=== PATIENT | female | born 1965 | race Caucasian/White ===

== ENCOUNTER 2023-01-24 16:20 | Inpatient (IN) ==
--- NOTE | 2023-01-24 16:25 | Emergency Department Note ---
Impression & Plan Hypoxia, SOB (shortness of breath), Anemia, COPD exacerbation ED Provider Note NAME: MAGGIE XIAO AGE: 57 SEX: F : 1965 ARRIVES VIA: Ambulance INFORMANT: [Patient][ems] ED PROVIDER(S): [Fransisco Fink MD] CHIEF COMPLAINT: Short of breath, low oxygen level. HISTORY OF PRESENT ILLNESS: Seen at ED on 01/06/23 for chest pain. Signed out AMA prior to CT scan results or trending trops. Seen at ED on 01/07/23 fall, resulting in L shoulder and back pain. Shoulder XR negative. Head CT unremarkable. Discharged to home. Seen at ED on 01/08/23 for chronic pain and chest pain. [place] related to anxiety. tx w/ Oxycodone. Discharged to home. Seen at ED on 01/20/23 for shortness of breath. EKG without acute changes. Discharged to home w/ no new med changes. Seen at ED on 01/21/23 for L knee pain. dx w/ L knee sprain. Discharged to home w/ no new med changes. The patient was seen today at her doctor's office and had an O2 saturation on her typical 3 L nasal cannula O2 of 65%. She was feeling short of breath. She was sent by ambulance. In route, she was placed on a nonrebreather mask and give a DuoNeb. She feels better after the DuoNeb treatment. The patient carries a history of COPD. She did notice shortness of breath walking into her doctor's office today. She has noticed a cough today. The patient denies fever, no chest pain. No stuffy nose or sore throat. Her legs are somewhat swollen but this is baseline. The patient has been at the [facility] several times this week already. Please see the above documentation. PMHx/PSHx: See Below SOCIAL HISTORY: See Below. PHYSICAL EXAM: GENERAL: Patient is in no acute distress. On facemask O2. HEENT: No acute trauma, normocephalic atraumatic, mucous membranes moist, no nasal congestion. NECK: No stridor, no adenopathy, no meningismus, trachea is midline. LUNGS: Markedly diminished breath sounds with wheezes bilaterally and crackles at both bases. No obvious respiratory distress. HEART: Mildly tachycardic, regular rhythm, no obvious murmur. Heart tones are distant ABDOMEN: Soft, nontender, bowel sounds positive, no peritonitis. Obese. EXTREMITIES: No cyanosis, mild bilateral pedal edema, full range of motion of all the joints without pain or difficulty, no signs for acute trauma. NEUROLOGIC: Oriented x 3, no acute motor or sensory deficits, no focal weakness. SKIN: No rash, no jaundice, no diaphoresis. DIFFERENTIAL DIAGNOSIS: Pneumonia, bronchitis, PE, anemia, IA, electrolyte imbalance, COPD exacerbation, among others. EMERGENCY DEPARTMENT COURSE/PROCEDURES: Prior/Outside records reviewed: Recent family doctor's office note, recent [facility] visits. ECG per my interpretation: Indication was shortness of breath. The ECG shows a sinus tachycardia with a rate of 106. There is some nonspecific ST change. There is no ST elevation, no PVCs. The QTc is 446. Continuous Cardiac Monitoring per my interpretation: An order was placed for continuous cardiac monitoring. The monitor shows a rate of 102 with sinus tachycardia. Critical Care Note: I have personally spent 48 minutes of critical care time in the direct management of this patient. This includes bedside care, interpretation of diagnostic studies, and testing, discussion with consultants, patient, and family members, and other required patient management activities. This 48 minutes is in excess of all separately billable procedures. MEDICAL DECISION MAKING: There is no leukocytosis. The patient is anemic. There are no old values to use for comparison. This value can be followed here in the hospital. There was a normal platelet count. No coagulopathy. No renal failure or significant electrolyte abnormality. No concerning liver enzyme elevation. BNP was not elevated making CHF and fluid overload unlikely. Lactic acid level was not elevated making sepsis less likely. ECG showed a sinus tachycardia, no obvious acute ischemia. Cardiac enzyme testing x1 is slightly elevated, this elevation could be from cardiac injury or potentially just mismatch from her hypoxia. Urinalysis did not show infection. Respiratory bio fire was completely negative. Chest film per my review showed a potential left base infiltrate. No pneumothorax or CHF. Chest CT did not show any pneumonia, some atelectasis was seen. There was no PE. Changes for COPD were found. On exam, the patient had wheezing and diminished breath sounds with some bibasilar crackles. No obvious respiratory distress. Patient was given a DuoNeb, a second DuoNeb was given. She received IV Solu- Medrol, she was given IV Levaquin as antibiotic coverage. Patient does seem to be improved. I do think she requires a hospital stay. She appears to have an exacerbation of COPD as the cause for her hypoxia and shortness of breath. I did speak with the patient at length, I spoke with case management. The on-call hospitalist was consulted. DISPOSITION: The patient's findings and presentation warrant a hospital stay. Past Med/Surg History Medical History Anxiety Bipolar disorder COPD (chronic obstructive pulmonary disease) HTN (hypertension) Surgical History H/O: S/P cataract surgery Status post appendectomy Status post cholecystectomy Status post hernia repair Status post tooth extraction Family History Aunt Breast cancer Father Myocardial infarction Denies family history of Ovarian cancer Prostate cancer Colorectal cancer Social History Smoking Status: Current every day smoker Tobacco Type: Cigarettes Age Started Using Tobacco: 17; packs per day: 1; Second Hand Exposure: Yes; Do You Dip or Chew Tobacco: No; Hx Alcohol Use: No Hx Substance Use: No Visual Impairment: No Limitations Hearing Ability: Hard of Hearing Beliefs That Will Affect Care: None marital status: / Current Living Situation: Family Current Living Situation Comment: lives with son current occupational status: disabled How many Children do You have: 3 Feels Safe at Home: Yes Diet: regular Diet Comment: regular caffeine: Yes during the past year weight has: remained stable Dental Care, Regularly: No Physical Activity Frequency: Does not Exercise Seatbelt Use: always Allergies Allergies Allergy/AdvReac Type Severity Reaction Status Date / Time ibuprofen Allergy Severe THROAT Verified 01/24/23 17:25 TIGHTENS, BREATHING DIFFICULTIES ketorolac [From Toradol] Allergy Severe THROAT Verified 01/24/23 17:25 TIGHTENS, BREATHING DIFFICULTIES tramadol [From Ultram] Allergy Severe THROAT Verified 01/24/23 17:25 TIGHTENS, BREATHING DIFFICULTIES cephalexin [From Keflex] AdvReac Intermediate Diarrhea Verified 01/24/23 17:25 Home Meds Home Medications Medication Instructions Recorded Confirmed albuterol sulfate 2.5 mg/0.5 mL 5 mg inhalation TID 01/24/23 01/24/23 solution for nebulization albuterol sulfate 90 mcg/actuation 2 inh inhalation Q4H PRN Shortness 01/24/23 01/24/23 breath activated powder inhaler Of Breath amlodipine 10 mg tablet (Norvasc) 10 mg PO QAM 01/24/23 01/24/23 aspirin 81 mg tablet,delayed 81 mg PO QAM 01/24/23 01/24/23 release atorvastatin 20 mg tablet (Lipitor) 20 mg PO HS 01/24/23 01/24/23 budesonide 0.5 mg/2 mL suspension 0.25 mg inhalation BID 01/24/23 01/24/23 for nebulization budesonide-formoterol HFA 160 2 puff inhalation BID 01/24/23 01/24/23 mcg-4.5 mcg/actuation aerosol inhaler (Symbicort) bumetanide 0.5 mg tablet 0.5 mg PO QAM 01/24/23 01/24/23 ndcjvvtaia-aeczslgyocnyc-ehvejsqc 1 tab PO Q6H PRN Headache 01/24/23 01/24/23 50 mg-325 mg-40 mg tablet carvedilol 6.25 mg tablet (Coreg) 6.25 mg PO BID 01/24/23 01/24/23 cholecalciferol (vitamin D3) 50 50 mcg PO QAM 01/24/23 01/24/23 mcg (2,000 unit) capsule diclofenac sodium 1 % topical gel 4 g topical QID PRN Pain 01/24/23 01/24/23 gabapentin 600 mg tablet 600 mg PO TID 01/24/23 01/24/23 hydrocodone 5 mg-acetaminophen 325 1 tab PO Q6H PRN Pain 01/24/23 01/24/23 mg tablet hydroxyzine HCl 50 mg tablet 100 mg PO DIRECTED PRN Anxiety 01/24/23 01/24/23 lisinopril 40 mg tablet 40 mg PO QAM 01/24/23 01/24/23 lurasidone 20 mg tablet (Latuda) 20 mg PO HS 01/24/23 01/24/23 ondansetron HCl 4 mg tablet 4 mg PO TID PRN NAUSEA/VOMITING 01/24/23 01/24/23 pantoprazole 40 mg tablet,delayed 40 mg PO BID 01/24/23 01/24/23 release (Protonix) prazosin 2 mg capsule 2 mg PO HS 01/24/23 01/24/23 venlafaxine 37.5 mg 37.5 mg PO QAM 01/24/23 01/24/23 capsule,extended release 24 hr (Effexor XR) venlafaxine 75 mg capsule,extended 75 mg PO QAM 01/24/23 01/24/23 release 24 hr (Effexor XR) Results & Data (ED) Vital Signs Vital Signs - 24 hr 01/24/23 16:25 01/24/23 16:25 01/24/23 16:25 Temperature 37.5 C Temperature Source Oral Pulse Rate 108 H 108 H Pulse Rate from SpO2 Sensor Respiratory Rate 24 22 Blood Pressure 139/76 Blood Pressure Mean 97 Blood Pressure Position Sitting Pulse Oximetry 100 100 Oxygen Delivery Method Non-rebreather Non-rebreather Non-rebreather Oxygen Flow Rate 15 15 15 Sepsis Recent Fever Within 48 Hours No Sepsis New/Unexplained Change in Mental Status No Sepsis Action Taken by Nursing Physician Notified Oxygen Flow Rate - Titration Pulse Oximetry Post Tiitration 01/24/23 16:45 01/24/23 16:47 01/24/23 18:29 Temperature Temperature Source Pulse Rate 104 H 105 H Pulse Rate from SpO2 Sensor 105 H Respiratory Rate 20 Blood Pressure 160/88 H Blood Pressure Mean 112 Blood Pressure Position Pulse Oximetry 100 94 Oxygen Delivery Method Nasal Cannula Non-rebreather Nasal Cannula Oxygen Flow Rate 15 6 Sepsis Recent Fever Within 48 Hours Sepsis New/Unexplained Change in Mental Status Sepsis Action Taken by Nursing Oxygen Flow Rate - Titration 5 Pulse Oximetry Post Tiitration 92 Home Medications Current Medication List: was personally reviewed by me Laboratory Data Attestation: I reviewed the patient's lab results. 01/24/23 16:30 01/24/23 16:30 Lab Results 01/24/23 01/24/23 01/24/23 Range/Units 16:30 16:30 16:30 WBC 10.04 (4.8-10.8) K/ul RBC 3.75 L (4.20-5.40) M/uL Hgb 10.1 L (12.0-16.0) g/dl Hct 34.0 L (37.0-47.0) % MCV 90.7 (80.0-100.0) fL MCH 26.9 (25.0-34.0) pg MCHC 29.7 L (32.0-36.0) g/dL RDW Std Deviation 55.1 H (36.4-46.3) fL RDW Coeff of Kaylan 16.9 H (11.5-14.5) % Plt Count 300 (130-400) K/uL MPV 9.8 (9.4-12.4) fL Immature Gran % (Auto) 1.0 % Neut % (Auto) 69.8 % Lymph % (Auto) 17.2 % Wilkinson % (Auto) 9.6 % Eos % (Auto) 1.8 % Baso % (Auto) 0.6 % Neut # (Auto) 7.01 H (1.40-6.50) K/uL Lymph # (Auto) 1.73 (1.2-3.4) K/uL Wilkinson # (Auto) 0.96 H (0.11-0.59) K/uL Eos # (Auto) 0.18 (0-0.50) K/uL Baso # (Auto) 0.06 (0-0.2) K/uL Immature Gran # (Auto) 0.10 (0.01-0.20) K/uL Absolute Nucleated RBC 0.03 (0-0.12) K/uL Nucleated RBC % (auto) 0.3 % PT (9.0-12.0) Seconds INR (0.9-1.1) APTT (21.0-31.0) Seconds PTT Ratio Sodium (136-145) mmol/L Potassium (3.5-5.1) mmol/L Chloride (98-107) mmol/L Carbon Dioxide (21-32) mmol/L Anion Gap (3-11) BUN (6-23) mg/dl Creatinine (0.6-1.2) mg/dl Est Cr Clr Drug Dosing ml/min Est GFR ( Amer) ml/min Est GFR (Non-Af Amer) ml/min BUN/Creatinine Ratio (10-20) Glucose (70-99(Fasting)) mg/dl Lactate 0.8 (0.4-2.0) mmol/L Calcium (8.6-10.3) mg/dl Magnesium (1.7-2.4) mg/dl Total Bilirubin (0.2-1.0) mg/dl AST (13-39) U/L ALT (7-52) U/L Alkaline Phosphatase (34-104) U/L Troponin I High Sens (0-14) pg/ml B-Natriuretic Peptide 100 (0-100) pg/ml Total Protein (6.0-8.3) gm/dl Albumin (3.4-5.0) gm/dl Globulin (2.5-4.0) gm/dl Albumin/Globulin Ratio (0.9-2) Urine Color Urine Appearance (Clear) Urine pH (4.5-7.5) Ur Specific Kent (1.000-1.030) Urine Protein (Negative) Urine Glucose (UA) (Negative) Urine Ketones (Negative) Urine Blood (Negative) Urine Nitrite (Negative) Urine Bilirubin (Negative) Urine Urobilinogen (Negative) Ur Leukocyte Esterase (Negative) Urine WBC (Auto) (0-5) /hpf Urine RBC (Auto) (0-4) /hpf U Hyaline Cast (Auto) (0-5) /lpf U Epithel Cells (Auto) (0-5) /lpf Urine Bacteria (Auto) (Negative) Adenovirus (PCR) (NotDetected) B. pertussis DNA (PCR) (NotDetected) B.parapertussis DNA PCR (NotDetected) C. pneumoniae DNA (PCR) (NotDetected) Coronavirus OC43 (PCR) (NotDetected) Coronavirus HKU1 (PCR) (NotDetected) Coronavirus 229E (PCR) (NotDetected) SARS-CoV-2 (PCR) (NotDetected) Coronavirus NL63 (PCR) (NotDetected) Human Metapneumovir PCR (NotDetected) Influenza Type A (PCR) (NotDetected) Influenza Type B (PCR) (NotDetected) M. pneumoniae (PCR) (NotDetected) Parainfluenza 1 (PCR) (NotDetected) Parainfluenza 2 (PCR) (NotDetected) Parainfluenza 3 (PCR) (NotDetected) Parainfluenza 4 (PCR) (NotDetected) RSV (PCR) (NotDetected) Entero/Rhino (PCR) (NotDetected) 01/24/23 01/24/23 01/24/23 Range/Units 16:30 16:30 17:08 WBC (4.8-10.8) K/ul RBC (4.20-5.40) M/uL Hgb (12.0-16.0) g/dl Hct (37.0-47.0) % MCV (80.0-100.0) fL MCH (25.0-34.0) pg MCHC (32.0-36.0) g/dL RDW Std Deviation (36.4-46.3) fL RDW Coeff of Kaylan (11.5-14.5) % Plt Count (130-400) K/uL MPV (9.4-12.4) fL Immature Gran % (Auto) % Neut % (Auto) % Lymph % (Auto) % Wilkinson % (Auto) % Eos % (Auto) % Baso % (Auto) % Neut # (Auto) (1.40-6.50) K/uL Lymph # (Auto) (1.2-3.4) K/uL Wilkinson # (Auto) (0.11-0.59) K/uL Eos # (Auto) (0-0.50) K/uL Baso # (Auto) (0-0.2) K/uL Immature Gran # (Auto) (0.01-0.20) K/uL Absolute Nucleated RBC (0-0.12) K/uL Nucleated RBC % (auto) % PT 10.9 (9.0-12.0) Seconds INR 1.0 (0.9-1.1) APTT 22.3 (21.0-31.0) Seconds PTT Ratio 0.8 Sodium 139 (136-145) mmol/L Potassium 3.9 (3.5-5.1) mmol/L Chloride 98 (98-107) mmol/L Carbon Dioxide 38 H (21-32) mmol/L Anion Gap 3 (3-11) BUN 6 (6-23) mg/dl Creatinine 0.45 L (0.6-1.2) mg/dl Est Cr Clr Drug Dosing 152.3 ml/min Est GFR ( Amer) 129.8 ml/min Est GFR (Non-Af Amer) 112.0 ml/min BUN/Creatinine Ratio 13.3 (10-20) Glucose 103 H (70-99(Fasting)) mg/dl Lactate (0.4-2.0) mmol/L Calcium 9.0 (8.6-10.3) mg/dl Magnesium 1.8 (1.7-2.4) mg/dl Total Bilirubin 0.2 (0.2-1.0) mg/dl AST 16 (13-39) U/L ALT 9 (7-52) U/L Alkaline Phosphatase 69 (34-104) U/L Troponin I High Sens 14.2 H (0-14) pg/ml B-Natriuretic Peptide (0-100) pg/ml Total Protein 6.8 (6.0-8.3) gm/dl Albumin 3.6 (3.4-5.0) gm/dl Globulin 3.2 (2.5-4.0) gm/dl Albumin/Globulin Ratio 1.1 (0.9-2) Urine Color Urine Appearance (Clear) Urine pH (4.5-7.5) Ur Specific Kent (1.000-1.030) Urine Protein (Negative) Urine Glucose (UA) (Negative) Urine Ketones (Negative) Urine Blood (Negative) Urine Nitrite (Negative) Urine Bilirubin (Negative) Urine Urobilinogen (Negative) Ur Leukocyte Esterase (Negative) Urine WBC (Auto) (0-5) /hpf Urine RBC (Auto) (0-4) /hpf U Hyaline Cast (Auto) (0-5) /lpf U Epithel Cells (Auto) (0-5) /lpf Urine Bacteria (Auto) (Negative) Adenovirus (PCR) Not Detected (NotDetected) B. pertussis DNA (PCR) Not Detected (NotDetected) B.parapertussis DNA PCR Not Detected (NotDetected) C. pneumoniae DNA (PCR) Not Detected (NotDetected) Coronavirus OC43 (PCR) Not Detected (NotDetected) Coronavirus HKU1 (PCR) Not Detected (NotDetected) Coronavirus 229E (PCR) Not Detected (NotDetected) SARS-CoV-2 (PCR) Not Detected (NotDetected) Coronavirus NL63 (PCR) Not Detected (NotDetected) Human Metapneumovir PCR Not Detected (NotDetected) Influenza Type A (PCR) Not Detected (NotDetected) Influenza Type B (PCR) Not Detected (NotDetected) M. pneumoniae (PCR) Not Detected (NotDetected) Parainfluenza 1 (PCR) Not Detected (NotDetected) Parainfluenza 2 (PCR) Not Detected (NotDetected) Parainfluenza 3 (PCR) Not Detected (NotDetected) Parainfluenza 4 (PCR) Not Detected (NotDetected) RSV (PCR) Not Detected (NotDetected) Entero/Rhino (PCR) Not Detected (NotDetected) 01/24/23 Range/Units 18:27 WBC (4.8-10.8) K/ul RBC (4.20-5.40) M/uL Hgb (12.0-16.0) g/dl Hct (37.0-47.0) % MCV (80.0-100.0) fL MCH (25.0-34.0) pg MCHC (32.0-36.0) g/dL RDW Std Deviation (36.4-46.3) fL RDW Coeff of Kaylan (11.5-14.5) % Plt Count (130-400) K/uL MPV (9.4-12.4) fL Immature Gran % (Auto) % Neut % (Auto) % Lymph % (Auto) % Wilkinson % (Auto) % Eos % (Auto) % Baso % (Auto) % Neut # (Auto) (1.40-6.50) K/uL Lymph # (Auto) (1.2-3.4) K/uL Wilkinson # (Auto) (0.11-0.59) K/uL Eos # (Auto) (0-0.50) K/uL Baso # (Auto) (0-0.2) K/uL Immature Gran # (Auto) (0.01-0.20) K/uL Absolute Nucleated RBC (0-0.12) K/uL Nucleated RBC % (auto) % PT (9.0-12.0) Seconds INR (0.9-1.1) APTT (21.0-31.0) Seconds PTT Ratio Sodium (136-145) mmol/L Potassium (3.5-5.1) mmol/L Chloride (98-107) mmol/L Carbon Dioxide (21-32) mmol/L Anion Gap (3-11) BUN (6-23) mg/dl Creatinine (0.6-1.2) mg/dl Est Cr Clr Drug Dosing ml/min Est GFR ( Amer) ml/min Est GFR (Non-Af Amer) ml/min BUN/Creatinine Ratio (10-20) Glucose (70-99(Fasting)) mg/dl Lactate (0.4-2.0) mmol/L Calcium (8.6-10.3) mg/dl Magnesium (1.7-2.4) mg/dl Total Bilirubin (0.2-1.0) mg/dl AST (13-39) U/L ALT (7-52) U/L Alkaline Phosphatase (34-104) U/L Troponin I High Sens (0-14) pg/ml B-Natriuretic Peptide (0-100) pg/ml Total Protein (6.0-8.3) gm/dl Albumin (3.4-5.0) gm/dl Globulin (2.5-4.0) gm/dl Albumin/Globulin Ratio (0.9-2) Urine Color Yellow Urine Appearance Clear (Clear) Urine pH 7.0 (4.5-7.5) Ur Specific Kent 1.023 (1.000-1.030) Urine Protein Negative (Negative) Urine Glucose (UA) Negative (Negative) Urine Ketones Negative (Negative) Urine Blood Negative (Negative) Urine Nitrite Negative (Negative) Urine Bilirubin Negative (Negative) Urine Urobilinogen Negative (Negative) Ur Leukocyte Esterase 1+ H (Negative) Urine WBC (Auto) 5-10 H (0-5) /hpf Urine RBC (Auto) 0-4 (0-4) /hpf U Hyaline Cast (Auto) 1-5 (0-5) /lpf U Epithel Cells (Auto) >30 H (0-5) /lpf Urine Bacteria (Auto) Negative (Negative) Adenovirus (PCR) (NotDetected) B. pertussis DNA (PCR) (NotDetected) B.parapertussis DNA PCR (NotDetected) C. pneumoniae DNA (PCR) (NotDetected) Coronavirus OC43 (PCR) (NotDetected) Coronavirus HKU1 (PCR) (NotDetected) Coronavirus 229E (PCR) (NotDetected) SARS-CoV-2 (PCR) (NotDetected) Coronavirus NL63 (PCR) (NotDetected) Human Metapneumovir PCR (NotDetected) Influenza Type A (PCR) (NotDetected) Influenza Type B (PCR) (NotDetected) M. pneumoniae (PCR) (NotDetected) Parainfluenza 1 (PCR) (NotDetected) Parainfluenza 2 (PCR) (NotDetected) Parainfluenza 3 (PCR) (NotDetected) Parainfluenza 4 (PCR) (NotDetected) RSV (PCR) (NotDetected) Entero/Rhino (PCR) (NotDetected) Administered Medications Discontinued Medications Albuterol (Albut/Ipratrop 3mg/0.5mg Neb 3 Ml Vial) 3 ml NEB NOW STA; Protocol Stop: 01/24/23 16:36 Last Admin: 01/24/23 17:04 Dose: 3 ml Documented By: QGV Albuterol (Albut/Ipratrop 3mg/0.5mg Neb 3 Ml Vial) 3 ml NEB NOW STA; Protocol Stop: 01/24/23 18:58 Last Admin: 01/24/23 19:11 Dose: 3 ml Documented By: Levofloxacin/Dextrose (Levaquin/D5w) 750 mg in 150 mls @ 100 mls/hr IV NOW STA Stop: 01/24/23 18:42 Last Admin: 01/24/23 18:30 Dose: 100 mls/hr Documented By: QGV Ioversol (Optiray 320 500ml) 104 ml IV ONCE ONE Stop: 01/24/23 18:12 Last Admin: 01/24/23 18:11 Dose: 104 ml Documented By: ROBIN Methylprednisolone (Methylprednisolone 125 Mg/2 Ml Vial) 60 mg IV NOW STA Stop: 01/24/23 16:36 Last Admin: 01/24/23 17:04 Dose: 60 mg Documented By: QGV Imaging Data Radiologist's Impression: Chest CTA 01/24/23 16:34 CT ANGIOGRAPHY OF THE CHEST, PULMONARY EMBOLUS PROTOCOL CLINICAL HISTORY: Dyspnea. COMPARISON STUDY: Chest radiograph January 24, 2023 at 4:55 PM. TECHNIQUE: Following IV administration of 104 mL of Optiray, helical axial images of the chest were obtained utilizing the pulmonary embolus protocol. Maximal intensity projections and sagittal and coronal reformats were viewed on an independent 3D workstation. IV contrast was administered without c omplication. Automated exposure control was utilized for the study. A dose lowering technique was utilized adhering to the principles of ALARA. CT DOSE: 940.81 mGy.cm FINDINGS: No pulmonary emboli are identified although the segmental and subsegmental pulmonary arteries are suboptimally assessed due to respiratory m otion. There is mild cardiomegaly. There is no pericardial effusion. No thoracic aortic dissection. There are prominent mediastinal and left hilar lymph nodes. Index subcarinal lymph node measures 1.1 cm in short axis diameter. Index left hilar node measures 1 cm short axis diameter. No pneumothorax or pleural effusion is present. Subpleural opacities favor atelectasis. There is no consolidation to suggest pneumonia. Lower lobe bronchial wall thickening is present. There is moderate upper lobe predominant emphysema. No acute fractures within the bony thorax are noted. The gallbladder is surgically absent. IMPRESSION: 1. No pulmonary emboli identified although segmental and subsegmental pulmonary arteries suboptimally assessed due to respiratory motion. 2. No consolidation to suggest pneumonia. Subpleural opacities suggestive of atelectasis. 3. Bilateral lower lobe bronchial wall thickening. 4. Prominent mediastinal and left hilar lymph nodes. These are likely benign. However, a follow-up chest CT in 6 months is recommended. 5. Mild upper lobe predominant emphysema. ACT 112: Negative or not required by law. Electronically signed by: Jose Zuñiga M.D. 01/24/2023 6:37 PM Chest X-Ray 01/24/23 16:34 XR chest 1V portable CLINICAL HISTORY: Dyspnea TECHNIQUE: Single frontal radiograph of the chest was obtained. Comparison: None available at the time of this dictation. FINDINGS: No lines and tubes are seen. Cardiomegaly is noted. The aortic arch is calcified. Prominence and cephalization of the vasculature is seen. Atelectasis versus scarring is in the left upper lobe. There may be small bilateral pleural effusions. IMPRESSION: Cardiomegaly and mild pulmonary edema. Small bilateral pleural effusions cannot be excluded. ACT 112: Negative or not required by law. Electronically signed by: Roosevelt Koch M.D. 01/24/2023 5:00 PM Discharge Plan Visit Data Chief Complaint: Shortness of Breath/Dyspnea Stated Complaint: SHORTNESS OF BREATH ED Provider: Fransisco Fink Discharge Problem: Hypoxia, SOB (shortness of breath), Anemia, COPD exacerbation Patient Disposition: Admitted As Inpatient Condition: Fair Forms Stand Alone Forms: Count Includes [facility] Prescriptions Prescriptions: No Action hydroxyzine HCl 50 mg tablet 100 mg PO DIRECTED PRN (Reason: Anxiety) venlafaxine [Effexor XR] 37.5 mg capsule,extended release 24hr 37.5 mg PO QAM Rx Instructions: TOTAL DOSE 112.5 MG--TAKES WITH 75 MG CAP. venlafaxine [Effexor XR] 75 mg capsule,extended release 24hr 75 mg PO QAM Rx Instructions: TOTAL DOSE 112.5 MG--TAKES WITH 37.5 MG CAP. lurasidone [Latuda] 20 mg tablet 20 mg PO HS Rx Instructions: must administer with food (at least 350 calories) prazosin 2 mg capsule 2 mg PO HS gabapentin 600 mg tablet 600 mg PO TID aspirin 81 mg tablet,delayed release (DR/EC) 81 mg PO QAM carvedilol [Coreg] 6.25 mg tablet 6.25 mg PO BID Rx Instructions: must administer with a meal/food lisinopril 40 mg tablet 40 mg PO QAM amlodipine [Norvasc] 10 mg tablet 10 mg PO QAM bumetanide 0.5 mg tablet 0.5 mg PO QAM atorvastatin [Lipitor] 20 mg tablet 20 mg PO HS pantoprazole [Protonix] 40 mg tablet,delayed release (DR/EC) 40 mg PO BID cholecalciferol (vitamin D3) 50 mcg (2,000 unit) capsule 50 mcg PO QAM diclofenac sodium 1 % gel 4 g topical QID PRN (Reason: Pain) hydrocodone-acetaminophen 5-325 mg tablet 1 tab PO Q6H PRN (Reason: Pain) budesonide 0.5 mg/2 mL suspension for nebulization 0.25 mg inhalation BID albuterol sulfate 90 mcg/actuation aerosol powdr breath activated 2 inh inhalation Q4H PRN (Reason: Shortness Of Breath) albuterol sulfate 2.5 mg/0.5 mL solution for nebulization 5 mg inhalation TID budesonide-formoterol [Symbicort] 160-4.5 mcg/actuation HFA aerosol inhaler 2 puff inhalation BID yqicadugao-dywubuidoehca-fnqv 50-325-40 mg tablet 1 tab PO Q6H PRN (Reason: Headache) ondansetron HCl 4 mg tablet 4 mg PO TID PRN (Reason: NAUSEA/VOMITING) Referrals Referrals: Ry Hernandez CRNP [Primary Care Provider] -
[2023-01-24] MEDS ORDERED: ALBUT/IPRATROP 3MG/0.5MG NEB 3 ML VIAL NEB STA ×2 (16:35→18:57)
[2023-01-24] MEDS ORDERED: methylPREDNISolone 125 MG/2 ML VIAL IV STA (16:35)
[2023-01-24 16:43] LABS: Basophils # (auto) 0.06 K/uL (0-0.2); Basophils % (auto) 0.6 %; Eosinophils # (auto) 0.18 K/uL (0-0.50); Eosinophils % (auto) 1.8 %; Hemoglobin 10.1 g/dl (12.0-16.0); Lymphocytes # (auto) 1.73 K/uL (1.2-3.4); Lymphocytes % (auto) 17.2 %; Mean Corpuscular Hemoglobin 26.9 pg (25.0-34.0); Mean Corpuscular Hgb Conc 29.7 g/dL (32.0-36.0); Mean Corpuscular Volume 90.7 fL (80.0-100.0); Mean Platelet Volume 9.8 fL (9.4-12.4); Monocytes # (auto) 0.96 K/uL (0.11-0.59); Monocytes % (auto) 9.6 %; Neutrophils # (auto) 7.01 K/uL (1.40-6.50); Neutrophils % (auto) 69.8 %; Nucleated RBC # (auto) 0.03 K/uL (0-0.12); Nucleated RBC % (auto) 0.3 %; Platelet Count 300 K/uL (130-400); RDW Coefficient of Variation 16.9 % (11.5-14.5); RDW Standard Deviation 55.1 fL (36.4-46.3); Red Blood Count 3.75 M/uL (4.20-5.40); White Blood Count 10.04 K/ul (4.8-10.8)
--- NOTE | 2023-01-24 17:02 | XRay Report ---
XR chest 1V portable CLINICAL HISTORY: Dyspnea TECHNIQUE: Single frontal radiograph of the chest was obtained. Comparison: None available at the time of this dictation. FINDINGS: No lines and tubes are seen. Cardiomegaly is noted. The aortic arch is calcified. Prominence and ceph alization of the vasculature is seen. Atelectasis versus scarring is in the left upper lobe. There ma y be small bilateral pleural effusions. IMPRESSION: Cardiomegaly and mild pulmonary edema. Small bilateral pleural effusions cannot be excluded. ACT 112: Negative or not required by law. Electronically signed by: Roosevelt Koch M.D. 01/24/2023 5:00 PM
[2023-01-24 17:05] LABS: Albumin Globulin Ratio 1.1 (0.9-2); Albumin Level 3.6 gm/dl (3.4-5.0); BUN Creatinine Ratio 13.3 (10-20); Bilirubin,Total 0.2 mg/dl (0.2-1.0); Creatinine Clr Calc Pharmacy 152.3 ml/min; Est GFR (African American) 129.8 ml/min; Globulin 3.2 gm/dl (2.5-4.0); Magnesium 1.8 mg/dl (1.7-2.4); Potassium 3.9 mmol/L (3.5-5.1); Total Protein 6.8 gm/dl (6.0-8.3)
[2023-01-24 17:10] LABS: Troponin I High Sensitivity 14.2 pg/ml (0-14)
[2023-01-24] MEDS ORDERED: levoFLOXacin/D5W 750 MG/150 ML BAG IV STA (17:13)
[2023-01-24 17:16] LABS: Partial Thromboplastin Ratio 0.8; Partial Thromboplastin Time 22.3 Seconds (21.0-31.0); Prothrombin Time 10.9 Seconds (9.0-12.0)
[2023-01-24 18:02] LABS: Adenovirus PCR Not Detected (NotDetected); Bordetella parapertussis PCR Not Detected (NotDetected); Bordetella pertussis PCR Not Detected (NotDetected); Chlamydia pneumoniae PCR Not Detected (NotDetected); Coronavirus 229E PCR Not Detected (NotDetected); Coronavirus CoV-2 (COVID19)PCR Not Detected (NotDetected); Coronavirus HKU1 PCR Not Detected (NotDetected); Coronavirus NL63 PCR Not Detected (NotDetected); Coronavirus OC43PCR Not Detected (NotDetected); Human Metapneumovirus PCR Not Detected (NotDetected); Influenza A PCR Not Detected (NotDetected); Influenza B PCR Not Detected (NotDetected); Mycoplasma pneumoniae PCR Not Detected (NotDetected); Parainfluenza Virus 1 PCR Not Detected (NotDetected); Parainfluenza Virus 2 PCR Not Detected (NotDetected); Parainfluenza Virus 3 PCR Not Detected (NotDetected); Parainfluenza Virus 4 PCR Not Detected (NotDetected); Respiratory Syncytial VirusPCR Not Detected (NotDetected); Rhinovirus/Enterovirus PCR Not Detected (NotDetected)
[2023-01-24] MEDS ORDERED: OPTIRAY 320 500ml IV ONE (18:11)
--- NOTE | 2023-01-24 18:39 | CT Scan Report ---
CT ANGIOGRAPHY OF THE CHEST, PULMONARY EMBOLUS PROTOCOL CLINICAL HISTORY: Dyspnea. COMPARISON STUDY: Chest radiograph January 24, 2023 at 4:55 PM. TECHNIQUE: Following IV administration of 104 mL of Optiray, helical axial images of the chest were o btained utilizing the pulmonary embolus protocol. Maximal intensity projections and sagittal and cor onal reformats were viewed on an independent 3D workstation. IV contrast was administered without co mplication. Automated exposure control was utilized for the study. A dose lowering technique was ut ilized adhering to the principles of ALARA. CT DOSE: 940.81 mGy.cm FINDINGS: No pulmonary emboli are identified although the segmental and subsegmental pulmonary arter ies are suboptimally assessed due to respiratory motion. There is mild cardiomegaly. There is no oleg cardial effusion. No thoracic aortic dissection. There are prominent mediastinal and left hilar lymph nodes. Index subcarinal lymph node measures 1.1 cm in short axis diameter. Index left hilar node ha sures 1 cm short axis diameter. No pneumothorax or pleural effusion is present. Subpleural opacities favor atelectasis. There is no consolidation to suggest pneumonia. Lower lobe bronchial wall thickeni ng is present. There is moderate upper lobe predominant emphysema. No acute fractures within the bony thorax are noted. The gallbladder is surgically absent. IMPRESSION: 1. No pulmonary emboli identified although segmental and subsegmental pulmonary arteries suboptimally assessed due to respiratory motion. 2. No consolidation to suggest pneumonia. Subpleural opacities suggestive of atelectasis. 3. Bilateral lower lobe bronchial wall thickening. 4. Prominent mediastinal and left hilar lymph nodes. These are likely benign. However, a follow-up [facility] CT in 6 months is recommended. 5. Mild upper lobe predominant emphysema. ACT 112: Negative or not required by law. Electronically signed by: Jose Zuñiga M.D. 01/24/2023 6:37 PM
[2023-01-24 18:49] LABS: Appearance Urine Clear (Clear); Bacteria Urine Automated Negative (Negative); Bilirubin Urine Negative (Negative); Blood Urine Negative (Negative); Color Urine Yellow; Epithelial Cell Urine Auto >30 /lpf (0-5); Glucose Urine UA Negative (Negative); Ketones Urine Negative (Negative); Leukocyte Esterase Urine 1+ (Negative); Nitrite Urine Negative (Negative); Protein Urine Negative (Negative); RBC Urine Automated 0-4 /hpf (0-4); Specific Gravity Urine 1.023 (1.000-1.030); Urobilinogen Urine Negative (Negative)
[2023-01-24] MEDS ORDERED: ALBUT/IPRATROP 3MG/0.5MG NEB 3 ML VIAL NEB PRN (19:35)
[2023-01-24] MEDS ORDERED: POLYETHYLENE (MIRALAX) 17 GM PACK PO PRN (19:56)
--- NOTE | 2023-01-24 20:06 | History & Physical Report ---
Date of Service January 24, 2023 Assessment & Plan (1) Hypoxia: Plan: 57 y/o female with a PMHx of COPD currently smoking 1/2 PPD on 3L NC at baseline, HTN, HLD, anxiety, depression, GERD, and chronic lower back pain here for evaluation of SOB admitted for COPD exacerbation. #COPD exacerbation Patient not taking maintenance medications at home. In addition patient smoking about 1/2 PPD. These likely contributed to current clinical status. Would recommend admission for further stabilization of O2 status. Patient was acutely ill [] VBG - BiPAP if CO2 retaining [] smoking cessation [] methylpred 40 mg IV TID - can wean as appropriate per day team [] transition to Azithromycin evening 01/25 if low suspicion for pneumonia [] pulmonary toilet - mucinex, nebs, IS, flutter valve etc [] restart home symbicort - importance of maintenance medication use explained t o patient #Worsening oxygen requirement Some concern for HF. BNP 100. Would recommend ECHO to evaluate for systolic or diastolic dysfunction #Chronic pain Continue with hydrocodone Q6H PRN for pain. Escalate as indicated #Elevated troponin Trend #Anemia Unclear etiology - monitor [] AM CBC #HTN continue home meds #HLD continue home meds #GERD continue home meds #Anxiety/Depression continue home meds Code status: full DVT ppx: lovenox FENGI: heart healthy Dispo:PCU - can downgrade tomorrow if stable (2) SOB (shortness of breath): (3) COPD exacerbation: (4) HTN (hypertension): (5) Chronic back pain: (6) Anxiety: (7) GERD (gastroesophageal reflux disease): (8) HLD (hyperlipidemia): (9) Depression: (10) Anemia: History of Present Illness Chief Complaint: SOB Primary Care Provider: SYMONE Hale 57 y/o female with a PMHx of COPD currently smoking 1/2 PPD, HTN, HLD, anxiety, depression, GERD, and chronic lower back pain here for evaluation of SOB. She was seen at her doctor's office and found to have an O2 saturation of 65% on her home O2 of 3L NC. Patient did note some wheezing in the morning and p erformed a nebulizer at that time. Per patient she has not been using her maintenance Symbicort inhaler as she did not feel that it made a difference. Patient was continuing to use the nebulizers as they did provide relief of wheezing symptoms. Patient does also report back pain. No CP, f/c/cough/SOB/dysuria/abdominal pain or other complaints at the time of evaluation. Patient initially required non-rebreather to maintain adequate oxygenation. Patient now on 6L NC. Tachycardic to the 110s on presentation otherwise HDS and afebrile. Given duonebs and 60 mg IV methylpred in the ED. She was also given a dose of Levaquin for presumed PNA. Labs: HsTrop 14.2 Imaging: CTA negative for clot, CXR not convincing for pneumonia Allergies Allergy/AdvReac Type Severity Reaction Status Date / Time ibuprofen Allergy Severe THROAT Verified 01/24/23 17:25 TIGHTENS, BREATHING DIFFICULTIES ketorolac [From Toradol] Allergy Severe THROAT Verified 01/24/23 17:25 TIGHTENS, BREATHING DIFFICULTIES tramadol [From Ultram] Allergy Severe THROAT Verified 01/24/23 17:25 TIGHTENS, BREATHING DIFFICULTIES cephalexin [From Keflex] AdvReac Intermediate Diarrhea Verified 01/24/23 17:25 Home Medications Medication Instructions Recorded Confirmed Type albuterol sulfate 2.5 mg/0.5 mL 5 mg inhalation TID 01/24/23 01/24/23 History solution for nebulization albuterol sulfate 90 mcg/actuation 2 inh inhalation Q4H PRN Shortness 01/24/23 01/24/23 History breath activated powder inhaler Of Breath amlodipine 10 mg tablet (Norvasc) 10 mg PO QAM 01/24/23 01/24/23 History aspirin 81 mg tablet,delayed 81 mg PO QAM 01/24/23 01/24/23 History release atorvastatin 20 mg tablet (Lipitor) 20 mg PO HS 01/24/23 01/24/23 History budesonide 0.5 mg/2 mL suspension 0.25 mg inhalation BID 01/24/23 01/24/23 History for nebulization budesonide-formoterol HFA 160 2 puff inhalation BID 01/24/23 01/24/23 History mcg-4.5 mcg/actuation aerosol inhaler (Symbicort) bumetanide 0.5 mg tablet 0.5 mg PO QAM 01/24/23 01/24/23 History wewqnzqkzr-slqvbodnlllim-fjtyqinj 1 tab PO Q6H PRN Headache 01/24/23 01/24/23 History 50 mg-325 mg-40 mg tablet carvedilol 6.25 mg tablet (Coreg) 6.25 mg PO BID 01/24/23 01/24/23 History cholecalciferol (vitamin D3) 50 50 mcg PO QAM 01/24/23 01/24/23 History mcg (2,000 unit) capsule diclofenac sodium 1 % topical gel 4 g topical QID PRN Pain 01/24/23 01/24/23 History gabapentin 600 mg tablet 600 mg PO TID 01/24/23 01/24/23 History hydrocodone 5 mg-acetaminophen 325 1 tab PO Q6H PRN Pain 01/24/23 01/24/23 History mg tablet hydroxyzine HCl 50 mg tablet 100 mg PO DIRECTED PRN Anxiety 01/24/23 01/24/23 History lisinopril 40 mg tablet 40 mg PO QAM 01/24/23 01/24/23 History lurasidone 20 mg tablet (Latuda) 20 mg PO HS 01/24/23 01/24/23 History ondansetron HCl 4 mg tablet 4 mg PO TID PRN NAUSEA/VOMITING 01/24/23 01/24/23 History pantoprazole 40 mg tablet,delayed 40 mg PO BID 01/24/23 01/24/23 History release (Protonix) prazosin 2 mg capsule 2 mg PO HS 01/24/23 01/24/23 History venlafaxine 37.5 mg 37.5 mg PO QAM 01/24/23 01/24/23 History capsule,extended release 24 hr (Effexor XR) venlafaxine 75 mg capsule,extended 75 mg PO QAM 01/24/23 01/24/23 History release 24 hr (Effexor XR) Past Med/Surg History Medical History Anxiety Bipolar disorder COPD (chronic obstructive pulmonary disease) HTN (hypertension) Surgical History H/O: S/P cataract surgery Status post appendectomy Status post cholecystectomy Status post hernia repair Status post tooth extraction Family History Aunt Breast cancer Father Myocardial infarction Denies family history of Ovarian cancer Prostate cancer Colorectal cancer Social History Smoking Status: Current every day smoker Tobacco Type: Cigarettes Age Started Using Tobacco: 17; packs per day: 1; Second Hand Exposure: Yes; Do You Dip or Chew Tobacco: No; Hx Alcohol Use: No Hx Substance Use: No Visual Impairment: No Limitations Hearing Ability: Hard of Hearing Beliefs That Will Affect Care: None marital status: / Current Living Situation: Family Current Living Situation Comment: lives with son current occupational status: disabled How many Children do You have: 3 Feels Safe at Home: Yes Diet: regular Diet Comment: regular caffeine: Yes during the past year weight has: remained stable Dental Care, Regularly: No Physical Activity Frequency: Does not Exercise Seatbelt Use: always Review of Systems Review of Systems: See HPI Physical Exam Physical Exam: Gen: well appearing obese female with NC in place in NAD HEENT: AT NC MMM Resp: Diffuse wheezing bilaterally with poor air flow. No crackles or rhonchi noted. CV: Tachycardic with regular rhythm, no m/r/g - difficult to auscultate with diffuse wheezing Abd: soft non-tender, non-distended no HSM or masses noted Psych: appropriate mood and affect Skin: no rashes, bruising, or edema Neuro: alert and oriented Results & Data Results & Data Vital Signs (Past 12 Hours) Vital Signs Temp Pulse Resp BP Pulse Ox O2 Del Method O2 Flow Rate 01/24/23 18:29 105 H 20 160/88 H 94 Nasal Cannula 6 01/24/23 16:47 104 H 01/24/23 16:45 100 Nasal Cannula, Non-rebreather 15 01/24/23 16:25 Non-rebreather 15 01/24/23 16:25 108 H 22 100 Non-rebreather 15 01/24/23 16:25 37.5 C 108 H 24 139/76 100 Non-rebreather 15 Laboratory Results 01/24/23 16:30 01/24/23 16:30 Diagnostic Findings Chest CTA 01/24/23 16:34 CT ANGIOGRAPHY OF THE CHEST, PULMONARY EMBOLUS PROTOCOL CLINICAL HISTORY: Dyspnea. FINDINGS: No pulmonary emboli are identified although the segmental and subsegmental pulmonary arteries are suboptimally assessed due to respiratory motion. There is mild cardiomegaly. There is no pericardial effusion. No thorac ic aortic dissection. There are prominent mediastinal and left hilar lymph nodes. Index subcarinal lymph node measures 1.1 cm in short axis diameter. Index left hilar node measures 1 cm short axis diameter. No pneumothorax or pleural effusion is present. Subpleural opacities favor atelectasis. There is no consolidation to suggest pneumonia. Lower lobe bronchial wall thickening is present. There is moderate upper lobe predominant emphysema. No acute fractures within the bony thorax are noted. The gallbladder is surgically absent. IMPRESSION: 1. No pulmonary emboli identified although segmental and subsegmental pulmonary arteries suboptimally assessed due to respiratory motion. 2. No consolidation to suggest pneumonia. Subpleural opacities suggestive of atelectasis. 3. Bilateral lower lobe bronchial wall thickening. 4. Prominent mediastinal and left hilar lymph nodes. These are likely benign. However, a follow-up chest CT in 6 months is recommended. 5. Mild upper lobe predominant emphysema. Chest X-Ray 01/24/23 16:34 XR chest 1V portable CLINICAL HISTORY: Dyspnea TECHNIQUE: Single frontal radiograph of the chest was obtained. Comparison: None available at the time of this dictation. FINDINGS: No lines and tubes are seen. Cardiomegaly is noted. The aortic arch is calcified. Prominence and cephalization of the vasculature is seen. Atelectasis versus scarring is in the left upper lobe. There may be small bilateral pleural effusions. IMPRESSION: Cardiomegaly and mild pulmonary edema. Small bilateral pleural effusions cannot be excluded. Supervising Physician Co-Signing Physician Notes Patient seen and examined, chart reviewed, case discussed with Marianna Tubbs PA-C and I agree with the assessment and plan as above except as otherwise noted Labs and images reviewed Is a 57-year-old female with a history of severe COPD with chronic respiratory failure on 2-3 L of nasal cannula who has had several presentations to [facility] for chest pain/shortness of breath in the last 2 weeks who returned home and then was progressively short of breath and found to be hypoxic in the 60s by EMS. Patient presented to the ER and subsequently improved with steroids, nebulizers, and supplemental oxygen now weaned to 6 L of nasal cannula maintaining sats of greater than 94%. On arrival to ER she was sick significantly wheezy. She denies fever, chills, sweats. Endorses wheezing. She has been using her inhalers as prescribed. At hospitalist assessment lungs are with expiratory wheezes bilaterally and prolonged expiration phase. Heart rate is regular. Pitting edema is not present. Chest wall is nontender to palpation. Troponin is mildly elevated at 14.2. This has been trended. No acute EKG changes consistent with ischemia BNP is 100. Suspect patient has a severe COPD exacerbation with concurrent demand ischemia. Procalcitonin is pending, she does not leukocytosis, BioFire is negative. CTA chest does not show evidence of any PE or evidence of superimposed pneumonia. Lactate is normal. Will treat for severe COPD at this time with steroids 3 times daily, wean as patient progresses. Scheduled and as needed nebs. Flutter valve, incentive spirometer ordered. Titrate SPO2 to goal 89-93%. Do not hyper oxygenate due to COPD physiology. BiPAP nightly as needed. VBG is pending at time of admission, patient has a CO2 of 38 on admission and likely has a hypercarbic retainer. BiPAP nightly, titrate pressures/minute ventilation to maintain a normal pH. Agree with assessment and management above Resident Activity Tracking Resident Involvement: Resident Care Provided Care Provided: Adult Hospital Medicine (10) Anemia Anemia type: unspecified type Qualified Code(s): D64.9 - Anemia, unspecified
[2023-01-24 20:45] LABS: Base Excess VBG 10.1 mEq/L; HCO3 VBG 39 mmol/L; Oxygen Saturation VBG < 60.0 %; PCO2 VBG 79 mmHg (38-50); PO2 VBG 28 mmHg
[2023-01-24] MEDS: HYDROCODONE/ACETAMOPHEN 5/325MG TAB PO PRN (23:27)
[2023-01-24] MEDS: carvediloL 6.25 MG TAB PO SCH (23:41)
[2023-01-24] MEDS: ATORVASTATIN 20 MG TAB PO SCH (23:42)
[2023-01-24] MEDS: LURASIDONE HCL 40 MG TAB PO SCH (23:42)
[2023-01-24] MEDS: PANTOprazole 40 MG TAB PO SCH (23:42)
[2023-01-24] MEDS: guaiFENesin 600 MG TABCR PO SCH (23:42)
[2023-01-24] MEDS: ENOXAPARIN INJ 40 MG/0.4 ML SYR SQ SCH (23:46)
[2023-01-24] MEDS: GABAPENTIN 600 MG TAB PO SCH (23:46)
[2023-01-24] MEDS: methylPREDNISolone 40 MG in SYRINGE 0 ML IV SCH (23:47)
[2023-01-25] MEDS: ALBUT/IPRATROP 3MG/0.5MG NEB 3 ML VIAL INH SCH ×4 (01:14→19:14)
[2023-01-25 04:38] LABS: Base Excess VBG 10.6 mEq/L; HCO3 VBG 42 mmol/L; Oxygen Saturation VBG < 60.0 %; PCO2 VBG 93 mmHg (38-50); PO2 VBG 28 mmHg; pH VBG 7.26 (7.36-7.41)
[2023-01-25 04:46] LABS: Hematocrit (blood only) 35.2 % (37.0-47.0); Hemoglobin 10.4 g/dl (12.0-16.0); Mean Corpuscular Hemoglobin 26.9 pg (25.0-34.0); Mean Corpuscular Hgb Conc 29.5 g/dL (32.0-36.0); Nucleated RBC # (auto) 0.04 K/uL (0-0.12); Nucleated RBC % (auto) 0.4 %; Platelet Count 309 K/uL (130-400); RDW Coefficient of Variation 16.3 % (11.5-14.5); RDW Standard Deviation 53.6 fL (36.4-46.3); Red Blood Count 3.87 M/uL (4.20-5.40); White Blood Count 9.36 K/ul (4.8-10.8)
[2023-01-25 05:05] LABS: BUN Creatinine Ratio 12.8 (10-20); Calcium 9.1 mg/dl (8.6-10.3); Est GFR (Non-African American) 110.4 ml/min; Potassium 5.4 mmol/L (3.5-5.1)
[2023-01-25 05:09] LABS: Troponin I High Sensitivity 11.4 pg/ml (0-14)
[2023-01-25 05:17] LABS: Basophils # (auto) 0.03 K/uL (0-0.2); Basophils % (auto) 0.3 %; Immature Granulocytes # (auto) 0.11 K/uL (0.01-0.20); Immature Granulocytes % (auto) 1.2 %; Lymphocytes % (auto) 6.4 %; Monocytes % (auto) 1.1 %; Neutrophils # (auto) 8.52 K/uL (1.40-6.50); Polychromasia 1+
[2023-01-25] MEDS: HYDROCODONE/ACETAMOPHEN 5/325MG TAB PO PRN ×3 (06:36→20:39)
[2023-01-25] MEDS: methylPREDNISolone 40 MG in SYRINGE 0 ML IV SCH ×2 (09:41→17:09)
[2023-01-25] MEDS: amLODIPine BESYLATE 5 MG TAB PO SCH (09:42)
[2023-01-25] MEDS: PANTOprazole 40 MG TAB PO SCH ×2 (09:42→20:38)
[2023-01-25] MEDS: VENLAFAXINE HCL XR 75 MG CAPXR PO SCH (09:42)
[2023-01-25] MEDS: VENLAFAXINE HCL XR 37.5 MG CAPXR PO SCH (09:42)
[2023-01-25] MEDS: carvediloL 6.25 MG TAB PO SCH ×2 (09:42→20:38)
[2023-01-25] MEDS: guaiFENesin 600 MG TABCR PO SCH ×2 (09:42→20:38)
[2023-01-25] MEDS: lisinopril 40 MG TAB PO SCH (09:43)
[2023-01-25] MEDS: ASPIRIN 81 MG ECTAB PO SCH (09:43)
[2023-01-25] MEDS: ENOXAPARIN INJ 40 MG/0.4 ML SYR SQ SCH ×2 (09:43→20:38)
[2023-01-25] MEDS: CHOLECALCIFEROL 1,000 UNITS 25 MCG TAB PO SCH (09:43)
[2023-01-25] MEDS: GABAPENTIN 600 MG TAB PO SCH ×3 (09:44→20:38)
[2023-01-25] MEDS: FLUTICASONE/VILANTEROL 200/25MCG 14 PUFFS/INHALER INH SCH (09:44)
[2023-01-25 10:05] LABS: Base Excess VBG 12.8 mEq/L; HCO3 VBG 41 mmol/L; Oxygen Saturation VBG < 60.0 %; PCO2 VBG 74 mmHg (38-50); PO2 VBG 30 mmHg; pH VBG 7.35 (7.36-7.41)
--- NOTE | 2023-01-25 13:54 | Hospitalist Progress Note ---
Date of Service January 25, 2023 Assessment & Plan (1) Hypoxia: Plan: Acute on chronic hypoxic respiratory failure secondary to COPD exacerbation Patient still smokes. Advised on smoking cessation She uses 3 L of oxygen at home Currently on Solu-Medrol 40 mg IV 3 times daily. We will continue as the patient is still wheezing Start azithromycin Continue DuoNebs Echo pending #Chronic pain Continue with hydrocodone Q6H PRN for pain. Escalate as indicated #Elevated troponin Trend #HTN continue home meds: Amlodipine 10, carvedilol 6.25 twice daily, lisinopril 40 #HLD continue home meds #GERD continue home meds #Anxiety/Depression continue home meds Code status: full DVT ppx: lovenox FENGI: heart healthy (2) SOB (shortness of breath): (3) COPD exacerbation: (4) HTN (hypertension): (5) Chronic back pain: (6) Anxiety: (7) GERD (gastroesophageal reflux disease): (8) HLD (hyperlipidemia): (9) Depression: (10) Anemia: (11) Acute and chronic respiratory failure with hypoxia: Admission and Anticipated Discharge Date Admission Date: January 24, 2023 Subjective Patient states that she feels better today than when she first presented to the emergency room. Her breathing is better. She is not wheezing as much. Not coughing as much either. Review of Systems Review of Systems: All systems reviewed & are unremarkable except as noted in Subjective Physical Exam Physical Exam: General: Awake, conversant Heart: S1, S2/regular rate and rhythm, no murmur rubs or gallops Lungs: Bilateral wheezing. Normal effort Abdomen: Soft/nontender/nondistended. No hepatosplenomegaly Extremities: No clubbing/cyanosis. No edema Behavior: Appropriate, cooperative Results & Data Results & Data Vital Signs (Past 12 Hours) Vital Signs Temp Pulse Pulse Resp BP Pulse Ox O2 Del Method 01/25/23 13:46 113 H 20 98 Nasal Cannula 01/25/23 08:00 100 H 01/25/23 08:00 Nasal Cannula 01/25/23 08:02 36.9 C 103 H 18 130/84 93 Nasal Cannula 01/25/23 07:27 113 H 20 93 Nasal Cannula 01/25/23 05:30 90 20 99 01/25/23 03:05 36.3 C L 95 H 20 116/64 97 BiPAP 01/25/23 01:59 113 H 23 95 O2 Flow Rate FiO2 01/25/23 13:46 5 01/25/23 08:00 01/25/23 08:00 5 01/25/23 08:02 5 01/25/23 07:27 4 01/25/23 05:30 40 01/25/23 03:05 01/25/23 01:59 45 PG Care Time/CCT Total # of Minutes Spent Total Time Spent with Patient: Total time spent is greater than 50% in coordination of care (as documented) at patient's floor/unit and/or counseling patient: Coding Level of Care Code 47998 SUB INP/OBS CARE 2/35MIN Diagnoses Hypoxia R09.02 SOB (shortness of breath) R06.02 COPD exacerbation J44.1 HTN (hypertension) I10 Chronic back pain M54.9; G89.29 Anxiety F41.9 GERD (gastroesophageal reflux disease) K21.9 HLD (hyperlipidemia) E78.5 Depression F32.A Anemia D64.9 Anemia type: unspecified type Acute and chronic respiratory failure with hypoxia J96.21 (10) Anemia Anemia type: unspecified type Qualified Code(s): D64.9 - Anemia, unspecified
[2023-01-25 16:15] LABS: HCO3 VBG 39 mmol/L; PCO2 VBG 62 mmHg (38-50); PO2 VBG 64 mmHg; pH VBG 7.41 (7.36-7.41)
--- NOTE | 2023-01-25 17:27 | XCELERA ---
[id number] [id number]
[2023-01-25] MEDS: ATORVASTATIN 20 MG TAB PO SCH (20:37)
[2023-01-25] MEDS: LURASIDONE HCL 40 MG TAB PO SCH (20:38)
[2023-01-25 22:01] LABS: HCO3 VBG 42 mmol/L; Oxygen Saturation VBG 97.2 %; PCO2 VBG 64 mmHg (38-50); PO2 VBG 87 mmHg; pH VBG 7.42 (7.36-7.41)
[2023-01-26] MEDS: methylPREDNISolone 40 MG in SYRINGE 0 ML IV SCH ×3 (01:58→21:05)
[2023-01-26] MEDS: HYDROCODONE/ACETAMOPHEN 5/325MG TAB PO PRN ×4 (02:04→21:13)
[2023-01-26] MEDS: ALBUT/IPRATROP 3MG/0.5MG NEB 3 ML VIAL INH SCH ×5 (02:19→22:19)
--- NOTE | 2023-01-26 05:48 | Electrocardiogram Report ---
Test Reason : Blood Pressure : / mmHG Vent. Rate : 106 BPM Atrial Rate : 106 BPM P-R Int : 124 ms QRS Dur : 072 ms QT Int : 336 ms P-R-T Axes : 053 039 084 degrees QTc Int : 446 ms Sinus tachycardia Nonspecific T wave abnormality Abnormal ECG No previous ECGs available Confirmed by Yogesh Cortés ([id number]) on 01/26/2023 5:48:36 AM Referred By: Ry Hernandez Confirmed By:Yogesh Cortés
[2023-01-26] MEDS: amLODIPine BESYLATE 5 MG TAB PO SCH (08:13)
[2023-01-26] MEDS: ASPIRIN 81 MG ECTAB PO SCH (08:13)
[2023-01-26] MEDS: carvediloL 6.25 MG TAB PO SCH ×2 (08:13→21:06)
[2023-01-26] MEDS: AZITHROMYCIN 250 MG TAB PO SCH (08:13)
[2023-01-26] MEDS: FLUTICASONE/VILANTEROL 200/25MCG 14 PUFFS/INHALER INH SCH (08:14)
[2023-01-26] MEDS: ENOXAPARIN INJ 40 MG/0.4 ML SYR SQ SCH ×2 (08:14→21:05)
[2023-01-26] MEDS: GABAPENTIN 600 MG TAB PO SCH ×3 (08:14→21:06)
[2023-01-26] MEDS: CHOLECALCIFEROL 1,000 UNITS 25 MCG TAB PO SCH (08:14)
[2023-01-26] MEDS: guaiFENesin 600 MG TABCR PO SCH ×2 (08:15→21:06)
[2023-01-26] MEDS: lisinopril 40 MG TAB PO SCH (08:15)
[2023-01-26] MEDS: PANTOprazole 40 MG TAB PO SCH ×2 (08:15→21:06)
[2023-01-26] MEDS: VENLAFAXINE HCL XR 75 MG CAPXR PO SCH (08:16)
[2023-01-26] MEDS: VENLAFAXINE HCL XR 37.5 MG CAPXR PO SCH (08:16)
[2023-01-26 09:26] LABS: BUN Creatinine Ratio 23.9 (10-20); Calcium 9.1 mg/dl (8.6-10.3); Creatinine Clr Calc Pharmacy 140.5 ml/min; Est GFR (African American) 128.9 ml/min; Est GFR (Non-African American) 111.2 ml/min; Potassium 4.3 mmol/L (3.5-5.1)
--- NOTE | 2023-01-26 15:53 | Hospitalist Progress Note ---
Date of Service January 26, 2023 Assessment & Plan (1) Hypoxia: Plan: Acute on chronic hypoxic respiratory failure secondary to COPD exacerbation Patient still smokes. Advised on smoking cessation She uses 3 L of oxygen at home, now on 5 L Reduce Solu-Medrol to 40 mg IV twice daily. Wheezing less today Continue azithromycin Continue DuoNebs Echo unremarkable Nicotine patch ordered #Chronic pain Continue with hydrocodone Q6H PRN for pain. Escalate as indicated #Elevated troponin Trend #HTN continue home meds: Amlodipine 10, carvedilol 6.25 twice daily, lisinopril 40 #HLD continue home meds #GERD continue home meds #Anxiety/Depression continue home meds Code status: full DVT ppx: lovenox FENGI: heart healthy (2) SOB (shortness of breath): (3) COPD exacerbation: (4) HTN (hypertension): (5) Chronic back pain: (6) Anxiety: (7) GERD (gastroesophageal reflux disease): (8) HLD (hyperlipidemia): (9) Depression: (10) Anemia: (11) Acute and chronic respiratory failure with hypoxia: Admission and Anticipated Discharge Date Admission Date: January 24, 2023 Subjective Patient feels better today. Breathing better. Wheezing less. Review of Systems Review of Systems: All systems reviewed & are unremarkable except as noted in Subjective Physical Exam Physical Exam: General: Awake, conversant Heart: S1, S2/regular rate and rhythm, no murmur rubs or gallops Lungs: Less bilateral wheezing. Normal effort Abdomen: Soft/nontender/nondistended. No hepatosplenomegaly Extremities: No clubbing/cyanosis. No edema Behavior: Appropriate, cooperative Results & Data Results & Data Vital Signs (Past 12 Hours) Vital Signs Temp Pulse Pulse Resp BP Pulse Ox O2 Del Method 01/26/23 15:07 36.8 C 96 H 20 130/82 95 Nasal Cannula 01/26/23 13:07 103 H 20 95 Nasal Cannula 01/26/23 11:23 36.9 C 96 H 20 137/84 94 Nasal Cannula 01/26/23 10:27 Nasal Cannula 01/26/23 08:00 96 H 01/26/23 07:40 36.4 C L 98 H 16 123/77 97 Nasal Cannula 01/26/23 07:20 104 H 20 95 Nasal Cannula O2 Flow Rate 05/26/23 15:07 5 01/26/23 13:07 5 01/26/23 11:23 5 01/26/23 10:27 5 01/26/23 08:00 01/26/23 07:40 5 01/26/23 07:20 5 PG Care Time/CCT Total # of Minutes Spent Total Time Spent with Patient: Total time spent is greater than 50% in coordination of care (as documented) at patient's floor/unit and/or counseling patient: Coding Level of Care Code 29534 SUB INP/OBS CARE 2/35MIN Diagnoses Hypoxia R09.02 SOB (shortness of breath) R06.02 COPD exacerbation J44.1 HTN (hypertension) I10 Chronic back pain M54.9; G89.29 Anxiety F41.9 GERD (gastroesophageal reflux disease) K21.9 HLD (hyperlipidemia) E78.5 Depression F32.A Anemia D64.9 Anemia type: unspecified type Acute and chronic respiratory failure with hypoxia J96.21 (10) Anemia Anemia type: unspecified type Qualified Code(s): D64.9 - Anemia, unspecified
[2023-01-26] MEDS: NICOTINE 21 MG/24 HR TDSY TD SCH (16:55)
[2023-01-26] MEDS: ATORVASTATIN 20 MG TAB PO SCH (21:06)
[2023-01-26] MEDS: LURASIDONE HCL 40 MG TAB PO SCH (21:07)
[2023-01-27] MEDS: HYDROCODONE/ACETAMOPHEN 5/325MG TAB PO PRN ×4 (03:39→23:06)
[2023-01-27] MEDS: ALBUT/IPRATROP 3MG/0.5MG NEB 3 ML VIAL INH SCH ×3 (07:09→19:33)
[2023-01-27 08:21] LABS: BUN Creatinine Ratio 29.8 (10-20); Creatinine Clr Calc Pharmacy 137.3 ml/min; Est GFR (Non-African American) 110.4 ml/min; Potassium 3.8 mmol/L (3.5-5.1)
[2023-01-27] MEDS: GABAPENTIN 600 MG TAB PO SCH ×3 (08:45→20:42)
[2023-01-27] MEDS: carvediloL 6.25 MG TAB PO SCH ×2 (08:45→20:42)
[2023-01-27] MEDS: ASPIRIN 81 MG ECTAB PO SCH (08:45)
[2023-01-27] MEDS: amLODIPine BESYLATE 5 MG TAB PO SCH (08:45)
[2023-01-27] MEDS: PANTOprazole 40 MG TAB PO SCH ×2 (08:45→20:42)
[2023-01-27] MEDS: AZITHROMYCIN 250 MG TAB PO SCH (08:45)
[2023-01-27] MEDS: lisinopril 40 MG TAB PO SCH (08:45)
[2023-01-27] MEDS: NICOTINE 21 MG/24 HR TDSY TD SCH (08:46)
[2023-01-27] MEDS: FLUTICASONE/VILANTEROL 200/25MCG 14 PUFFS/INHALER INH SCH (08:46)
[2023-01-27] MEDS: guaiFENesin 600 MG TABCR PO SCH ×2 (08:46→20:42)
[2023-01-27] MEDS: VENLAFAXINE HCL XR 37.5 MG CAPXR PO SCH (08:46)
[2023-01-27] MEDS: methylPREDNISolone 40 MG in SYRINGE 0 ML IV SCH (08:46)
[2023-01-27] MEDS: VENLAFAXINE HCL XR 75 MG CAPXR PO SCH (08:46)
[2023-01-27] MEDS: CHOLECALCIFEROL 1,000 UNITS 25 MCG TAB PO SCH (08:46)
[2023-01-27] MEDS: ENOXAPARIN INJ 40 MG/0.4 ML SYR SQ SCH ×2 (08:47→20:42)
--- NOTE | 2023-01-27 12:55 | Hospitalist Progress Note ---
Date of Service January 27, 2023 Assessment & Plan (1) Hypoxia: Plan: Acute on chronic hypoxic respiratory failure secondary to COPD exacerbation Patient still smokes. Advised on smoking cessation She uses 3 L of oxygen at home, now on 5 L Reduce Solu-Medrol to 40 mg IV once daily. Wheezing less today Continue azithromycin Continue DuoNebs Echo unremarkable Nicotine patch ordered #Chronic pain Continue with hydrocodone Q6H PRN for pain. Escalate as indicated #Elevated troponin Trend #HTN continue home meds: Amlodipine 10, carvedilol 6.25 twice daily, lisinopril 40 #HLD continue home meds #GERD continue home meds #Anxiety/Depression continue home meds Code status: full DVT ppx: lovenox FENGI: heart healthy Disposition: Discharge tomorrow on p.o. prednisone (2) SOB (shortness of breath): (3) COPD exacerbation: (4) HTN (hypertension): (5) Chronic back pain: (6) Anxiety: (7) GERD (gastroesophageal reflux disease): (8) HLD (hyperlipidemia): (9) Depression: (10) Anemia: (11) Acute and chronic respiratory failure with hypoxia: Admission and Anticipated Discharge Date Admission Date: January 24, 2023 Subjective Patient is breathing better but still wheezing a little bit and coughing still. Physical Exam Physical Exam: General: Awake, conversant Heart: S1, S2/regular rate and rhythm, no murmur rubs or gallops Lungs: Less bilateral wheezing. Normal effort Abdomen: Soft/nontender/nondistended. No hepatosplenomegaly Extremities: No clubbing/cyanosis. No edema Behavior: Appropriate, cooperative Results & Data Results & Data Vital Signs (Past 12 Hours) Vital Signs Temp Pulse Resp BP Pulse Ox O2 Del Method O2 Flow Rate 01/27/23 11:47 36.5 C 95 H 19 128/84 93 Nasal Cannula 3 01/27/23 08:04 100 H 18 95 Nasal Cannula 3 01/27/23 07:51 37.1 C 110 H 19 151/93 H 93 Nasal Cannula 3 01/27/23 03:39 36.7 C 84 20 144/87 H 91 Nasal Cannula 3 PG Care Time/CCT Total # of Minutes Spent Total Time Spent with Patient: Total time spent is greater than 50% in coordination of care (as documented) at patient's floor/unit and/or counseling patient: Coding Level of Care Code 03591 SUB INP/OBS CARE 235MIN Diagnoses Hypoxia R09.02 SOB (shortness of breath) R06.02 COPD exacerbation J44.1 HTN (hypertension) I10 Chronic back pain M54.9; G89.29 Anxiety F41.9 GERD (gastroesophageal reflux disease) K21.9 HLD (hyperlipidemia) E78.5 Depression F32.A Anemia D64.9 Anemia type: unspecified type Acute and chronic respiratory failure with hypoxia J96.21 (10) Anemia Anemia type: unspecified type Qualified Code(s): D64.9 - Anemia, unspecified
[2023-01-27] MEDS: ATORVASTATIN 20 MG TAB PO SCH (20:42)
[2023-01-27] MEDS: LURASIDONE HCL 40 MG TAB PO SCH (20:42)
[2023-01-28] MEDS: ALBUT/IPRATROP 3MG/0.5MG NEB 3 ML VIAL INH SCH ×3 (01:01→13:21)
[2023-01-28] MEDS: NICOTINE 21 MG/24 HR TDSY TD SCH (09:17)
[2023-01-28] MEDS: ASPIRIN 81 MG ECTAB PO SCH (09:20)
[2023-01-28] MEDS: GABAPENTIN 600 MG TAB PO SCH (09:20)
[2023-01-28] MEDS: amLODIPine BESYLATE 5 MG TAB PO SCH (09:20)
[2023-01-28] MEDS: AZITHROMYCIN 250 MG TAB PO SCH (09:20)
[2023-01-28] MEDS: HYDROCODONE/ACETAMOPHEN 5/325MG TAB PO PRN (09:20)
[2023-01-28] MEDS: VENLAFAXINE HCL XR 75 MG CAPXR PO SCH (09:21)
[2023-01-28] MEDS: ENOXAPARIN INJ 40 MG/0.4 ML SYR SQ SCH (09:21)
[2023-01-28] MEDS: VENLAFAXINE HCL XR 37.5 MG CAPXR PO SCH (09:21)
[2023-01-28] MEDS: CHOLECALCIFEROL 1,000 UNITS 25 MCG TAB PO SCH (09:21)
[2023-01-28] MEDS: lisinopril 40 MG TAB PO SCH (09:21)
[2023-01-28] MEDS: carvediloL 6.25 MG TAB PO SCH (09:21)
[2023-01-28] MEDS: FLUTICASONE/VILANTEROL 200/25MCG 14 PUFFS/INHALER INH SCH (09:21)
[2023-01-28] MEDS: guaiFENesin 600 MG TABCR PO SCH (09:21)
[2023-01-28] MEDS: methylPREDNISolone 40 MG in SYRINGE 0 ML IV SCH (09:21)
[2023-01-28] MEDS: PANTOprazole 40 MG TAB PO SCH (09:21)
--- NOTE | 2023-01-28 10:24 | Discharge Summary ---
Date of Service January 28, 2023 Admission HPI Per Admitting Provider 57 y/o female with a PMHx of COPD currently smoking 1/2 PPD, HTN, HLD, anxiety, depression, GERD, and chronic lower back pain here for evaluation of SOB. She was seen at her doctor's office and found to have an O2 saturation of 65% on her home O2 of 3L NC. Patient did note some wheezing in the morning and performed a nebulizer at that time. Per patient she has not been using her maintenance Symbicort inhaler as she did not feel that it made a difference. Patient was continuing to use the nebulizers as they did provide relief of wheezing symptoms. Patient does also report back pain. No CP, f/c/cough/SOB/dysuria/abdominal pain or other complaints at the time of evaluation. Patient initially required non-rebreather to maintain adequate oxygenation. Patient now on 6L NC. Tachycardic to the 110s on presentation otherwise HDS and afebrile. Given duonebs and 60 mg IV methylpred in the ED. She was also given a dose of Levaquin for presumed PNA. Labs: HsTrop 14.2 Imaging: CTA negative for clot, CXR not convincing for pneumonia Admission Exam Per Admitting Provider Gen: well appearing obese female with NC in place in NAD HEENT: AT NC MMM Resp: Diffuse wheezing bilaterally with poor air flow. No crackles or rhonchi noted. CV: Tachycardic with regular rhythm, no m/r/g - difficult to auscultate with diffuse wheezing Abd: soft non-tender, non-distended no HSM or masses noted Psych: appropriate mood and affect Skin: no rashes, bruising, or edema Neuro: alert and oriented Principal Diagnosis Acute exacerbation of COPD Discharge Exam General: Awake, conversant Heart: S1, S2/regular rate and rhythm, no murmur rubs or gallops Lungs: No wheezing. Diminished breath sounds. Normal effort Abdomen: Soft/nontender/nondistended. No hepatosplenomegaly Extremities: No clubbing/cyanosis. No edema Behavior: Appropriate, cooperative Discharge Data Allergies Allergy/AdvReac Type Severity Reaction Status Date / Time ibuprofen Allergy Severe THROAT Verified 01/24/23 17:25 TIGHTENS, BREATHING DIFFICULTIES ketorolac [From Toradol] Allergy Severe THROAT Verified 01/24/23 17:25 TIGHTENS, BREATHING DIFFICULTIES tramadol [From Ultram] Allergy Severe THROAT Verified 01/24/23 17:25 TIGHTENS, BREATHING DIFFICULTIES cephalexin [From Keflex] AdvReac Intermediate Diarrhea Verified 01/24/23 17:25 Consultations 01/24/23 19:21 ED Decision to Admit Stat Ordered Studies 01/24/23 16:34 CT angio chest PE protocol Stat Hospital Course (1) Hypoxia: Acute on chronic hypoxic respiratory failure secondary to COPD exacerbation Patient still smokes. Advised on smoking cessation She uses 3 L of oxygen at home, now on 5 L Not wheezing today Discontinue Solu-Medrol and switch to p.o. prednisone Discharge on tapering dose of p.o. prednisone Discontinue azithromycin Continue DuoNebs Echo unremarkable #Chronic pain Continue with hydrocodone Q6H PRN for pain. Escalate as indicated #Elevated troponin Trend #HTN continue home meds: Amlodipine 10, carvedilol 6.25 twice daily, lisinopril 40 #HLD continue home meds #GERD continue home meds #Anxiety/Depression continue home meds Code status: full Disposition: Discharged today. Advised to follow-up with PCP in 1 week (2) SOB (shortness of breath): (3) COPD exacerbation: (4) HTN (hypertension): (5) Chronic back pain: (6) Anxiety: (7) GERD (gastroesophageal reflux disease): (8) HLD (hyperlipidemia): (9) Depression: (10) Anemia: (11) Acute and chronic respiratory failure with hypoxia: Total Time Total Time Spent Total Time Spent (In Minutes): 35 Discharge Plan Discharge Items Patient Disposition: Home - Self-Care Reason For Visit: SOB Discharge Diagnosis: Acute exacerbation of COPD Condition on Discharge: Fair Activity: Resume your previous activity Non-emergency contact: Primary Care Provider Call non-emergency contact if: you have any medication questions and your symptoms worsen Follow-up/Referrals: Ry Hernandez CRNP [Primary Care Provider] - Diet: Heart Healthy Addtl Attending Provider Instructions: Advised to follow-up with your PCP in 1 week Pending Studies at Discharge: No Stand-Alone Forms: [employer], Smoking Cessation Medications and DC Order Prescriptions: New prednisone 10 mg tablet 10 mg PO DAILY Qty: 20 0RF Rx Instructions: 4 tabs for 2 days, then drop by 1 tab every 2 days, then stop Continued hydroxyzine HCl 50 mg tablet 100 mg PO DIRECTED PRN (Reason: Anxiety) venlafaxine [Effexor XR] 37.5 mg capsule,extended release 24hr 37.5 mg PO QAM Rx Instructions: TOTAL DOSE 112.5 MG--TAKES WITH 75 MG CAP. venlafaxine [Effexor XR] 75 mg capsule,extended release 24hr 75 mg PO QAM Rx Instructions: TOTAL DOSE 112.5 MG--TAKES WITH 37.5 MG CAP. lurasidone [Latuda] 20 mg tablet 20 mg PO HS Rx Instructions: must administer with food (at least 350 calories) prazosin 2 mg capsule 2 mg PO HS gabapentin 600 mg tablet 600 mg PO TID aspirin 81 mg tablet,delayed release (DR/EC) 81 mg PO QAM carvedilol [Coreg] 6.25 mg tablet 6.25 mg PO BID Rx Instructions: must administer with a meal/food lisinopril 40 mg tablet 40 mg PO QAM amlodipine [Norvasc] 10 mg tablet 10 mg PO QAM bumetanide 0.5 mg tablet 0.5 mg PO QAM atorvastatin [Lipitor] 20 mg tablet 20 mg PO HS pantoprazole [Protonix] 40 mg tablet,delayed release (DR/EC) 40 mg PO BID cholecalciferol (vitamin D3) 50 mcg (2,000 unit) capsule 50 mcg PO QAM diclofenac sodium 1 % gel 4 g topical QID PRN (Reason: Pain) hydrocodone-acetaminophen 5-325 mg tablet 1 tab PO Q6H PRN (Reason: Pain) budesonide 0.5 mg/2 mL suspension for nebulization 0.25 mg inhalation BID albuterol sulfate 90 mcg/actuation aerosol powdr breath activated 2 inh inhalation Q4H PRN (Reason: Shortness Of Breath) albuterol sulfate 2.5 mg/0.5 mL solution for nebulization 5 mg inhalation TID budesonide-formoterol [Symbicort] 160-4.5 mcg/actuation HFA aerosol inhaler 2 puff inhalation BID fobijtatbz-jhsouavgysgle-mlpr 50-325-40 mg tablet 1 tab PO Q6H PRN (Reason: Headache) ondansetron HCl 4 mg tablet 4 mg PO TID PRN (Reason: NAUSEA/VOMITING) Discharge Orders: Discharge Order (Routine); Ordered 01/28/23 Ordered By: Saad Pena Admission Data Admit Date/Time: 01/24/23 19:56 Attending Provider: Saad Pena Admit Provider: Marianna Tubbs Primary Care Provider: Ry Hernandez Other Providers: Carlos Amaro Coding Level of Care Code 64634 INP/OBS DISCH >30 MIN Diagnoses Hypoxia R09.02 SOB (shortness of breath) R06.02 COPD exacerbation J44.1 HTN (hypertension) I10 Chronic back pain M54.9; G89.29 Anxiety F41.9 GERD (gastroesophageal reflux disease) K21.9 HLD (hyperlipidemia) E78.5 Depression F32.A Anemia D64.9 Anemia type: unspecified type Acute and chronic respiratory failure with hypoxia J96.21
== END 2023-01-28 14:48 | disposition home health service (06) | DRG 190 ==
LOC: ED 16:20 → SUATTDRO 19:56 → 2S 19:56
DX: J96.21 Acute and chronic respiratory failure with hypoxia; E78.5 Hyperlipidemia, unspecified; F41.8 Other specified anxiety disorders; Z88.8 Allergy status to other drugs, medicaments and biological substances; Z79.82 Long term (current) use of aspirin; I24.8 Other forms of acute ischemic heart disease; D64.9 Anemia, unspecified; I10 Essential (primary) hypertension; J44.1 Chronic obstructive pulmonary disease with (acute) exacerbation; Z99.81 Dependence on supplemental oxygen; F17.210 Nicotine dependence, cigarettes, uncomplicated